=== PATIENT | female | born 1945 | race Caucasian/White ===

== ENCOUNTER 2018-02-11 12:05 | Inpatient (IN) | payer OTHER ==
[~2018-02-11] VITALS: Ht 167.6 cm; Wt 50.3 kg
[2018-02-11 12:48] LABS: BASOPHIL % 0.8 % (0-2); PLATELET COUNT 263 x10^3mcL (130-400); RED CELL DISTRIBUTION WIDTH 13.9 % (11.5-14.5)
[2018-02-11 12:55] LABS: CALCIUM 9.4 mg/dL (8.5-10.1); CARBON DIOXIDE 29.9 mmol/L (21-32); CHLORIDE SERUM 99 mmol/L (98-107); CREATININE SERUM 0.7 mg/dL (0.6-1.0); GLUCOSE SERUM 89 mg/dL (74-106); MAGNESIUM 1.8 mg/dL (1.8-2.4); POTASSIUM SERUM 4.1 mmol/L (3.5-5.1); SODIUM SERUM 138 mmol/L (136-145)
[2018-02-11] MEDS ORDERED: LIPITOR40 MG PO (13:41)
[2018-02-11] MEDS ORDERED: CLOPIDOGREL75 M1 PO (13:43)
[2018-02-11 13:48] LABS: microscopic required? YES; urine erythrocyte NEGATIVE (NEGATIVE)
[2018-02-11] MEDS ORDERED: LEXAPRO10 MG PO (13:58)
[2018-02-11] MEDS ORDERED: FELODIPINE5 M1 PO (13:59)
[2018-02-11] MEDS ORDERED: GABAPENTIN100 M2 PO (13:59)
[2018-02-11] MEDS ORDERED: KEPPRA500 MG PO (14:00)
[2018-02-11] MEDS ORDERED: LOSARTAN POTASS1 TA6 (14:01)
[2018-02-11] MEDS ORDERED: METOPROLOL SUCC50 M2 PO (14:02)
[2018-02-11] MEDS ORDERED: MULTI-VITAMINS1 TAB PO (14:02)
[2018-02-11] MEDS ORDERED: NAMENDA10 M2 PO (14:02)
[2018-02-11] MEDS ORDERED: NITROGLYCERIN0.4 MG SL ×2 (14:03)
[2018-02-11] MEDS ORDERED: GOOD SENSE OMEP20 MG PO (14:05)
[2018-02-11 14:13] LABS: AMPHETAMINE QUAL UR NONE DETECTED (See below)
[2018-02-11 15:00] LABS: PHOSPHOROUS 3.7 mg/dL (2.5-4.9)
[2018-02-11 15:02] LABS: CHOLESTEROL/HDL RATIO 2.1
[2018-02-11 15:04] LABS: FREE T4 0.95 ng/dL (0.76-1.46); FREE THYROXINE INDEX 2.7 ug/dL (1.4-4.5); T4(THYROXINE) 8.4 ug/dL (4.7-13.3)
[2018-02-11 15:26] VITALS: BP 140/70
[2018-02-11 15:31] VITALS: BP 140/70
[2018-02-11 15:37] VITALS: Ht 167.6 cm; Wt 50.3 kg
[2018-02-11 21:46] VITALS: BP 108/62
[2018-02-12 05:25] VITALS: BP 141/78
[2018-02-12 06:51] LABS: BASOPHIL % 1.3 % (0-2); PLATELET COUNT 261 x10^3mcL (130-400); RED CELL DISTRIBUTION WIDTH 14.1 % (11.5-14.5)
[2018-02-12 07:01] LABS: CARBON DIOXIDE 30.6 mmol/L (21-32); CHLORIDE SERUM 101 mmol/L (98-107); CREATININE SERUM 0.5 mg/dL (0.6-1.0); GLUCOSE SERUM 88 mg/dL (74-106); POTASSIUM SERUM 4.3 mmol/L (3.5-5.1); SODIUM SERUM 137 mmol/L (136-145)
[2018-02-12 09:32] VITALS: BP 124/74
[2018-02-12 13:52] VITALS: BP 124/74
== END 2018-02-12 15:51 | disposition home or self-care (01) | DRG 880 ==
LOC: ED 12:05 → DU 13:51
PROVIDERS: Emergency Medicine; Family Medicine
DX: F41.8 Other specified anxiety disorders (principal); N17.0 Acute kidney failure with tubular necrosis; I10 Essential (primary) hypertension; G30.9 Alzheimer's disease, unspecified; F02.80 Dementia in other diseases classified elsewhere, unspecified severity, without behavioral disturbance, psychotic disturbance, mood disturbance, and anxiety
CPT/HCPCS: 83880; 84439; 97110-GP; 97530-GP; J2060; J7030